=== PATIENT | male | born 1970 | race Caucasian/White ===

== ENCOUNTER → 2019-05-13 | Outpatient (CLI) | payer BC ==
--- NOTE | 2019-05-13 11:17 | USB ---
Reason for exam: clinical finding. Indicated problem(s): lump or thickening in the right breast. Physical Findings: Nurse Summary: 10 o'clock 0.5cm firm nodule (nurse kp). US Breast Limited RT Technologist: Afua Gould Right limited breast ultrasound including focal area of concern, retroareolar and axilla demonstrates a 0.4 x 0.5 x 0.5cm solid lesion at 10 o'clock. These results were verbally communicated with the patient and result sheet given to the patient on 05/13/19. ASSESSMENT: Suspicious, BI-RAD 4 RECOMMENDATION: Ultrasound core biopsy of the right breast. Called office with mammographic findings and has scheduled an appointment for the patient for 06/16/19 at 1:[address] Rain. Biopsy scheduled for 05/31/19 at 2:00. PRELIMINARY REPORT CALLED AND FAXED TO DR. RAIN ON 05/13/19.
== END | disposition home or self-care (01) ==
LOC: RADUSWWP 07:31
PROVIDERS: ATTEND Family Medicine
DX: R22.2 Localized swelling, mass and lump, trunk (principal)

== ENCOUNTER → 2019-05-31 | Day surgery (SDC) | payer BC ==
[2019-05-31 13:49] VITALS: RESP 16
--- NOTE | 2019-05-31 14:47 | USB ---
EXAMINATION TYPE: US breast needle core RT DATE OF EXAM: 05/31/2019 COMPARISON: 05/13/2019 CLINICAL HISTORY: Rt Breast Lump N63. TECHNIQUE: Ultrasound guided core biopsy of right breast. COMPARISON: 05/13/2019 FINDINGS: The procedure of ultrasound guided core biopsy was explained to the patient. Benefits, alternatives, and risks were discussed. An informed consent was then obtained. Preprocedural timeout was performed. The patient was placed in supine positioning for imaging and for the procedure. The overlying skin was prepped and draped in usual sterile fashion. 10 cc of 1% lidocaine was used as anesthetic into the skin and subcutaneous tissue up to a 0.5 cm solid mass at the 10:00 position in the right breast. Under ultrasound guidance, a 14-gauge BARD biopsy gun device was used to obtain 3 core samples. The patient tolerated the procedure well without any immediate complication. The patient was kept in the radiology department for short stay after the procedure and then discharged terri in stable condition. IMPRESSION: Successful, uncomplicated ultrasound guided core biopsy of a 0.5 cm solid mass at the 10:00 position in the right breast, full pathology results to follow. Pathology Results: Benign RIGHT BREAST, ULTRASOUND GUIDED CORE BIOPSY: Fat necrosis with scar and chronic inflammation. Negative for malignancy. Recommendation Follow up ultrasound of the right breast in 6 months. SANCHOD
[2019-05-31 14:50] VITALS: BP 113/62; PULSE 69; TEMP 98
== END ==
LOC: RADUSWWP 13:33
PROVIDERS: ATTEND Family Medicine
DX: N64.1 Fat necrosis of breast (principal)
CPT/HCPCS: 88305; 19083; J2001

== ENCOUNTER 2022-11-23 19:15 | Emergency (ER) | payer BC ==
[2022-11-23 19:23] VITALS: RESP 18; TEMP 98.2
--- NOTE | 2022-11-23 19:50 | ED ---
General Adult HPI - General Chief complaint: Neuro Symptoms/Deficit Stated complaint: Headache,Facial weakness Time Seen by Provider: 11/23/22 19:46 Source: patient Mode of arrival: ambulatory Limitations: no limitations - History of Present Illness Initial comments: Patient presents to the ED with his for evaluation. Patient states that he has had left-sided facial weakness that he first noticed about 4 hours ago today. He states that his "smile seems off-center". Patient's states that the patient's left eye is blinking less than his right eye. Patient also admits to having mild intermittent headaches for the past couple of weeks. He states that he's headaches are sometimes on the left side of his head and sometimes on the right side of his head. Patient denies having a headache currently. Patient denies trauma or injury, sudden onset of severe headache, focal numbness, visual changes, speech difficulty, chest pain or pressure, dyspnea, palpitations, dizziness, abdominal pain, nausea/vomiting, or any other symptoms or complaints. - Related Data Previous Rx's Medication Instructions Recorded predniSONE [Deltasone] 20 mg PO BID 10 Days #20 tab 11/23/22 valACYclovir HCL [Valacyclovir] 1,000 mg PO TID 7 Days #21 tab 11/23/22 Allergies Allergy/AdvReac Type Severity Reaction Status Date / Time No Known Allergies Allergy Verified 05/31/19 13:45 Review of Systems ROS Statement: Those systems with pertinent positive or pertinent negative responses have been documented in the HPI. ROS Other: All systems not noted in ROS Statement are negative. Past Medical History Past Medical History: No Reported History History of Any Multi-Drug Resistant Organisms: None Reported Past Surgical History: Orthopedic Surgery Additional Past Surgical History / Comment(s): Left knee ACL, MCL, Meniscus repair at age 27 Past Anesthesia/Blood Transfusion Reactions: No Reported Reaction Past Psychological History: No Psychological Hx Reported Smoking Status: Never smoker Past Alcohol Use History: Rare Past Drug Use History: None Reported General Exam Limitations: no limitations General appearance: alert Head exam: Present: atraumatic Eye exam: Present: normal appearance, PERRL, EOMI ENT exam: Present: mucous membranes moist, TM's normal bilaterally Neck exam: Absent: tenderness, meningismus Respiratory exam: Present: normal lung sounds bilaterally. Absent: respiratory distress, wheezes, rales, rhonchi, stridor Cardiovascular Exam: Present: regular rate, normal rhythm, normal heart sounds, other (Normal radial pulses bilaterally) Extremities exam: Present: full ROM Neurological exam: Present: alert, oriented X3, other (Diffuse left facial nerve weakness (with forhead involvement) consistent with Lozano's palsy; cranial nerves are otherwise intact; normal motor and sensation in all 4 extremities) Psychiatric exam: Present: normal affect, normal mood Skin exam: Present: warm, dry, intact, normal color Course Vital Signs 11/23/22 19:20 Temperature 98.2 F Pulse Rate 92 Respiratory 18 Rate Blood Pressure 133/78 O2 Sat by Pulse 97 Oximetry - Reevaluation(s) Reevaluation #1: 11/23/22 21:42 Patient denies development of any new symptoms while in the ED. Patient's neurological exam is unchanged. Patient and are aware the patient's test results, and they both feel comfortable with the patient being discharged home at this time. Patient was counseled about Lozano's palsy, and he was clearly explained return and follow-up instructions. Patient was instructed to follow up closely with his primary care provider. Patient feels comfortable with this plan. EKG Findings - EKG Comments: EKG Findings:: ED physician interpretation (interpreted by me): Normal sinus rhythm, no ectopy, ventricular rate of 83 bpm, normal OR and QRS intervals, normal QT interval, incomplete right bundle branch block, normal axis, no ST or T-wave abnormality Medical Decision Making - Medical Decision Making Was pt. sent in by a medical professional or institution (, PA, ARCHITECTURAL ENGINEER, urgent care, hospital, or retirement...) When possible be specific @ -No Did you speak to anyone other than the patient for history (EMS, parent, family, police, friend...)? What history was obtained from this source @ -No Did you review nursing and triage notes (agree or disagree)? Why? @ -I reviewed and agree with nursing and triage notes Were old charts reviewed (outside hosp., previous admission, EMS record, old EKG, old radiological studies, urgent care reports/EKG's, retirement records)? Report findings @ -No old charts were reviewed Differential Diagnosis (chest pain, altered mental status, abdominal pain women, abdominal pain men, vaginal bleeding, weakness, fever, dyspnea, syncope, headache, dizziness, GI bleed, back pain, seizure, CVA, palpatations, mental health, musculoskeletal)? @ -TIA, CVA, Lozano's palsy, neurological disease, MS, intracranial hemorrhage, intracranial mass, anxiety EKG interpreted by me (3pts min.). @ -As above X-rays interpreted by me (1pt min.). @ -None done CT interpreted by me (1pt min.). @ -Noncontrast head CT shows no acute abnormality. I agree with the radiologist's interpretation as above. U/S interpreted by me (1pt. min.). @ -None done What testing was considered but not performed or refused? (CT, X-rays, U/S, labs)? Why? @ -None What meds were considered but not given or refused? Why? @ -None Did you discuss the management of the patient with other professionals (professionals i.e. , PA, ARCHITECTURAL ENGINEER, lab, RT, psych nurse, child welfare social worker, juvenile corrections officer, teacher, special forces warrant officer, case monitor)? Give summary @ -No Was smoking cessation discussed for >3mins.? @ -No Was critical care preformed (if so, how long)? @ -No Were there social determinants of health that impacted care today? How? (Homelessness, low income, unemployed, alcoholism, drug addiction, transportation, low edu. Level, literacy, decrease access to med. care, longterm, rehab)? @ -No Was there de-escalation of care discussed even if they declined (Discuss DNR or withdrawal of care, Hospice)? DNR status @ -No What co-morbidities impacted this encounter? (DM, HTN, Smoking, COPD, CAD, Cancer, CVA, ARF, Chemo, Hep., AIDS, mental health diagnosis, sleep apnea, morbid obesity)? @ -None Was patient admitted / discharged? Hospital course, mention meds given and route, prescriptions, significant lab abnormalities, going to OR and other pertinent info. @ -Patient's history and physical exam findings are consistent with Lozano's palsy. Patient's EKG, labs and noncontrast head CT are fairly unremarkable. Patient has been treated with a dose of oral prednisone, as well as a dose of oral valacyclovir in the ED. Will discharge patient home with prescriptions for both of these medications. Patient feels comfortable with this plan. Undiagnosed new problem with uncertain prognosis? @ -No Drug Therapy requiring intensive monitoring for toxicity (Heparin, Nitro, Insulin, Cardizem)? @ -No Were any procedures done? @ -No Diagnosis/symptom? @ -Lozano's palsy Acute, or Chronic, or Acute on Chronic? @ -Acute Uncomplicated (without systemic symptoms) or Complicated (systemic symptoms)? @ -Uncomplicated Side effects of treatment? @ -No Exacerbation, Progression, or Severe Exacerbation? @ -No Poses a threat to life or bodily function? How? (Chest pain, USA, CT, pneumonia, PE, COPD, DKA, ARF, appy, cholecystitis, CVA, Diverticulitis, Homicidal, Suicidal, threat to staff... and all critical care pts) @ -No - Lab Data Result diagrams: 11/23/22 20:57 11/23/22 20:19 Lab Results 11/23/22 11/23/22 Range/Units 20:19 20:57 WBC 7.0 (3.8-10.6) k/uL RBC 4.47 (4.30-5.90) m/uL Hgb 14.1 (13.0-17.5) gm/dL Hct 40.7 (39.0-53.0) % MCV 91.1 (80.0-100.0) fL MCH 31.6 (25.0-35.0) pg MCHC 34.6 (31.0-37.0) g/dL RDW 13.7 (11.5-15.5) % Plt Count 227 (150-450) k/uL MPV 8.1 Neutrophils % 72 % Lymphocytes % 16 % Monocytes % 7 % Eosinophils % 2 % Basophils % 1 % Neutrophils # 5.1 (1.3-7.7) k/uL Lymphocytes # 1.1 (1.0-4.8) k/uL Monocytes # 0.5 (0-1.0) k/uL Eosinophils # 0.2 (0-0.7) k/uL Basophils # 0.1 (0-0.2) k/uL Sodium 135 L (137-145) mmol/L Potassium 4.5 (3.5-5.1) mmol/L Chloride 104 (98-107) mmol/L Carbon Dioxide 25 (22-30) mmol/L Anion Gap 6 mmol/L BUN 20 (9-20) mg/dL Creatinine 1.17 (0.66-1.25) mg/dL Est GFR (CKD-EPI)AfAm 84 (>60 ml/min/1.73 sqM) Est GFR (CKD-EPI)NonAf 72 (>60 ml/min/1.73 sqM) Glucose 106 H (74-99) mg/dL Calcium 8.6 (8.4-10.2) mg/dL Total Bilirubin 1.1 (0.2-1.3) mg/dL AST 65 H (17-59) U/L ALT 102 H (4-49) U/L Alkaline Phosphatase 78 (38-126) U/L Total Protein 7.6 (6.3-8.2) g/dL Albumin 4.0 (3.5-5.0) g/dL - Radiology Data Noncontrast head CT: No acute intracranial process. Follow-up MRI can be performed as clinically indicated. Disposition Clinical Impression: Lozano's palsy Disposition: HOME SELF-CARE Condition: Stable Instructions (If sedation given, give patient instructions): Lozano Palsy (ED) Additional Instructions: Return to the ER immediately should you develop new weakness, new or worsening pain, a fever, feeling dizzy or faint, shortness of breath, or new or worsening symptoms. Follow up closely with your primary care provider. Prescriptions: predniSONE [Deltasone] 20 mg PO BID 10 Days #20 tab valACYclovir HCL [Valacyclovir] 1,000 mg PO TID 7 Days #21 tab Is patient prescribed a controlled substance at d/c from ED?: No Referrals: None,Stated [Primary Care Provider] - 1-2 days Alexandru Hall DO [STAFF PHYSICIAN] - 1-2 days Time of Disposition: 21:51
[2022-11-23 20:39] LABS: ALT 102 U/L (4-49); AST 65 U/L (17-59); African American GFR (CKD) 84 (>60 ml/min/1.73 sqM); Alkaline Phosphatase 78 U/L (38-126); Anion Gap 6 mmol/L; Blood Urea Nitrogen 20 mg/dL (9-20); Calcium 8.6 mg/dL (8.4-10.2); Carbon Dioxide 25 mmol/L (22-30); Chloride 104 mmol/L (98-107); Glucose 106 mg/dL (74-99); Non-African American GFR(CKD) 72 (>60 ml/min/1.73 sqM); Sodium 135 mmol/L (137-145); Total Bilirubin 1.1 mg/dL (0.2-1.3); Total Protein 7.6 g/dL (6.3-8.2)
[2022-11-23 20:49] LABS: Potassium 4.5 mmol/L (3.5-5.1)
--- NOTE | 2022-11-23 21:09 | CT ---
EXAMINATION TYPE: CT brain wo con DATE OF EXAM: 11/23/2022 COMPARISON: None INDICATION: left side facial weakness DLP: 1192.8 mGycm, Automated exposure control for dose reduction was used. CONTRAST: None CT of the brain is performed utilizing 3 mm thick sections through the posterior fossa and 3 mm thick sections through the remaining calvarium. Study is performed within 24 hours of arrival to the hosp [place]. No abnormal hyperdensity is present to suggest an acute intracranial hemorrhage. No mass lesion is evident. No acute infarcts are evident. Ventricles and sulci are appropriate for the patient age. Paranasal sinuses and mastoid air cells within the [id number] are clear. IMPRESSIONS: 1. No acute intracranial process. Follow-up MRI can be performed as clinically indicated.
[2022-11-23 21:11] LABS: Basophils # (A) 0.1 k/uL (0-0.2); Basophils % (A) 1 %; Eosinophils # (A) 0.2 k/uL (0-0.7); Eosinophils % (A) 2 %; HCT 40.7 % (39.0-53.0); HGB 14.1 gm/dL (13.0-17.5); Lymphocytes # (A) 1.1 k/uL (1.0-4.8); Lymphocytes % (A) 16 %; MCH 31.6 pg (25.0-35.0); MCHC 34.6 g/dL (31.0-37.0); MCV 91.1 fL (80.0-100.0); Mean Platelet Volume 8.1; Monocytes # (A) 0.5 k/uL (0-1.0); Monocytes % (A) 7 %; Neutrophils # (A) 5.1 k/uL (1.3-7.7); Neutrophils % (A) 72 %; Platelet Count 227 k/uL (150-450); RBC 4.47 m/uL (4.30-5.90); RDW 13.7 % (11.5-15.5)
[2022-11-23] MEDS ORDERED: predniSONE 50 MG TAB PO STA (21:29)
[2022-11-23] MEDS ORDERED: valACYclovir HCL 1,000 MG TABLET PO STA (21:30)
[2022-11-23 22:41] VITALS: PULSE 77
[2022-11-23 22:45] VITALS: BP 133/86
== END 2022-11-23 22:53 | disposition home or self-care (01) ==
LOC: EC 19:15
DX: G51.0 Bell's palsy (principal)
CPT/HCPCS: 36415; 93005; 80053; 85025; 70450; 99284; J7512